=== PATIENT | female | born 1995 | race Caucasian/White ===

== ENCOUNTER 2019-01-18 10:00 | Outpatient (REF) | payer BC, SELFPAY ==
--- NOTE | 2019-01-18 08:45 | PAPFT_PTH ---
PATIENT: CARLINE ADAN LOC: [facility] U#:[id number] AGE/SX: 23/F ROOM: RE01/18/[address]: OLY Zarco : 1995 BED: DIS: 01/18/2019 SPEC #: [id number] RECD: 01/18/19 12:57 STATUS: ERICK REChano #: [id number] NITZA: 01/18/19 08:[address]: Patricia James DEPT: [facility] Cytology RECD BY: Sneha Diaz ENTERED: 01/18/19 12:57 SP TYPE: PAPFT OTHR DR: Caridad Sanders Tissues: 1 - CX/ENDOCX FOR PAP SMEARS Procedures: PAP THIN PREP/[facility] Screening Comments: [id number]
[2019-01-21 14:51] LABS: Chlamydia Result Negative; GC Result Negative
== END 2019-01-18 10:20 ==
LOC: LBN 10:00
PROVIDERS: PCP Family Medicine; Visit Provider Nurse Practitioner Family
DX: Z11.3 Encounter for screening for infections with a predominantly sexual mode of transmission (principal); Z12.4 Encounter for screening for malignant neoplasm of cervix; Z11.51 Encounter for screening for human papillomavirus (HPV)
CPT/HCPCS: 87491; 87591; 88142

== ENCOUNTER 2020-01-05 19:26 | Emergency (ER) | payer BC, SELFPAY ==
[2020-01-05 19:35] VITALS: BP 140/99; PULSE 107; RESP 20; TEMP 36.9; O2SAT 98
--- NOTE | 2020-01-05 19:54 | DI.RAD_ITS ---
EXAM: XR ANKLE LT COMPLETE CLINICAL HISTORY: pain and swelling after trauma TECHNIQUE: COMPARISON: No exams were available for comparison FINDINGS: Three views were obtained. There is a bimalleolar fracture. There is mild displacement of fractures of the distal fibula and medial malleolus. There may be slight widening of the tibiotalar joint med ially. No other fracture seen. IMPRESSION:
--- NOTE | 2020-01-05 20:03 | DI.VRAD_ITS ---
PROCEDURE INFORMATION: Exam: XR Left Ankle Exam date and time: 01/05/2020 19:53 Age: 24 years old Clinical indication: Injury or trauma; Fall; Initial encounter; Swelling (edema); Ankle; Left; Patient HX: Pain and swelling after trauma. ; Additional info: Injured roller blading. [place] a crack when falling. TECHNIQUE: Imaging protocol: XR Left ankle. Views: 3 or more views. COMPARISON: CR LEFT ANKLE COMPLETE 01/19/2016 20:44 FINDINGS: Bones/joints: Acute oblique fracture, distal fibula, extending to the level of the ankle mortise with mild distal lateral angulation. Acute fracture of the medial malleolus which is mildly comminuted without significant displacement. Very minimal lateral tibiotalar mild alignment however no cleo dislocation. A benign-appearing bone island in the distal tibia. Soft tissues: Lateral greater than medial ankle soft tissue swelling. IMPRESSION: 1. Acute oblique fracture, distal fibula, extending to the level of the ankle mortise with mild distal lateral angulation. 2. Acute fracture of the medial malleolus which is mildly comminuted without significant displacement. 3. Very minimal lateral tibiotalar mild alignment however no cleo dislocation. Dictated and Authenticated by: Karolina Cevallos MD. Ordering:GARRY Delgado MD
--- NOTE | 2020-01-05 20:10 | W.ED.GENAD ---
Discharge Plan Disposition Patient Disposition: HOME Condition: Good Discharge Details Chief Complaint: Orthopedic Clinical Impression: Ankle fracture, left Primary Care Provider: Caridad Sanders ED Provider: Andrea Lott Home Meds and New Rx's Prescriptions: Continued vitafusion daily multi PO RF: 0 Discharge Instructions Instructions: Ankle Fracture (ED) Additional Instructions: You have a notable fracture of your ankle for the fibula and tibia. You need to make sure that you are using your crutches at all times, keep the splint on for support. While this may heal without surgical mediation, there is a chance that it may require surgical management for your tendons. This will have to be determined on reevaluation by the building performance specialist. Please follow-up closely with them. We will place a referral for you and theyshould contact you shortly. Please take 1000 mg of Tylenol every 6 hours and 800 mg of ibuprofen every 6 hours for pain. If you notice any worsening pain, viselike sensation on your ankle calf or foot, change in color, numbness or tingling please immediately unwrap the splint, and loosen it. If there is no improvement with this please contact the ER immediately. If you notice any worsening of your symptoms, or any new symptoms such as vomiting, diarrhea, fever, chills, shortness of breath, chest pain, numbness, weakness, or fainting , please return immediately to the emergency department for reevaluation. Please follow up with your primary care provider as soon as possible for reassessment and reevaluation. As always, it was a pleasure participating in your medical care today. Referrals: Danny Jackson MD [ [facility]] - Asim Kenney MD [ [facility]] - Connor Saul MD [ [facility]] - Caridad Sanders [Primary Care Provider] - Medical Decision Making 24-year-old female no significant past medical history except for previous injury to the left ankle years ago presents today for evaluation of left ankle pain. Patient states that she was rollerskating earlier today, going backwards when she slipped and inverted her ankle. She heard a pop and felt significant pain. She came to the ER for further evaluation. She denies any numbness or tingling. She does have obvious pain with palpation or movement. She is unable to bear weight. She has no other complaints at this time. She has not taken any NSAIDs. No other modifying factors. Physical exam demonstrates notable swelling of the lateral aspect of the ankle, significant pain with palpation and movement. No other gross deformity though. X-ray reveals evidence of oblique fracture of the distal fibula, with a fracture also at the medial malleolus, mildly comminuted. Neurovascular exam is notably intact though. Patient was placed in a posterior splint secondary to the notable swelling in the ankle, concern for significant pain with pressure on the swollen areas if a sugar tong was used. Patient tolerated splint well. Gave new crutches. Patient will need close follow-up with orthopedics to evaluate for potential surgical management. Otherwise patient's foot is stable at this time. Discussed red flags which to return. Patient has refused any pain medications here at this time. No signs of compartment syndrome whatsoever. I have extensively reviewed the treatment plan and discharge instructions with the patient. I have addressed all patient concerns at this time. The patient was made aware of what symptoms to monitor for that would warrant a return to the emergency department. Discussed the plan with the patient, they demonstrate verbal understanding and agreement with our assessment and plan at this time. FINDINGS: Bones/joints: Acute oblique fracture, distal fibula, extending to the level of the ankle mortise with mild distal lateral angulation. Acute fracture of the medial malleolus which is mildly comminuted without significant displacement. Very minimal lateral tibiotalar mild alignment however no cleo dislocation. A benign-appearing bone island in the distal tibia. Soft tissues: Lateral greater than medial ankle soft tissue swelling. IMPRESSION: 1. Acute oblique fracture, distal fibula, extending to the level of the ankle mortise with mild distal lateral angulation. 2. Acute fracture of the medial malleolus which is mildly comminuted without significant displacement. 3. Very minimal lateral tibiotalar mild alignment however no cleo dislocation. Thank you for allowing us to participate in the care of your patient. Dictated and Authenticated by: Karolina Cevallos MD HPI General Date/Time Provider Initiated Documentation: 01/05/20 19:39. HPI Narrative: 24-year-old female no significant past medical history except for previous injury to the left ankle years ago presents today for evaluation of left ankle pain. Patient states that she was rollerskating earlier today, going backwards when she slipped and inverted her ankle. She heard a pop and felt significant pain. She came to the ER for further evaluation. She denies any numbness or tingling. She does have obvious pain with palpation or movement. She is unable to bear weight. She has no other complaints at this time. She has not taken any NSAIDs. No other modifying factors. Related Data Home Medications Medication Instructions Recorded Confirmed vitafusion daily multi PO 01/03/19 Allergies Allergy/AdvReac Type Severity Reaction Status Date / Time cat dander Allergy Intermediate Hives Verified 01/05/20 19:38 birch Allergy Swelling/Ed Verified 01/05/20 19:38 alma rosa General Stated Complaint: Orthopedic MELLISA: 3 Review of Systems All systems reviewed & are unremarkable except as noted in HPI and below PFSH Family History Father Depression Mother Depression Social History Smoking/Tobacco Use Status: Never Alcohol Intake: current Drug use: Occasionally Substance use type: marijuana current occupation: Teacher [employer] Do you feel safe at home: Yes Do you feel safe in your relationship?: Yes Female Reproductive History Menstrual control method: none History History 0 Para Hx # Term Pregnancies Multiple births Hx # Pregnancies Ectopic pregnancies AB induced Hx Number of Living Children AB spontaneous Exam Narrative Exam Narrative: 1.Const: Well-nourished, Well-developed, appearing stated age 2.Eyes: PERRL, no conjunctival injection, and symmetrical lids. 3.ENT: Atraumatic external nose and ears. Moist MM. Neck: Symmetric, trachea midline, No thyromegaly. 4.CVS: +S1/S2, No murmurs or gallops. Peripheral pulses 2+ and equal in all extremities. Brisk capillary refill in all extremities. 5.RESP: Unlabored respiratory effort. Clear to auscultation bilaterally. No wheezes rales or rhonchi 6.GI: Soft, Nontender/Nondistended, No hepatosplenomegaly. No guarding or rebound. 7.MSK: Normocephalic, No cyanosis or clubbing, patient's left ankle demonstrates notable swelling on the lateral aspect, notable pain on both the medial and lateral aspect. No pain in the base of the foot, or mid or proximal tib-fib or knee. Unable to manipulate the ankle secondary to pain and swelling. 8.Skin: Warm, Dry. No rashes or lesions. 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 Sensation grossly intact, no focal neurologic deficits. 10.Psych: (AAO) x3. Appropriate mood and affect Course Vital Signs Vital signs: Vital Signs Temperature 36.9 C 01/05/20 19:35 Pulse 107 H 01/05/20 19:35 Respiratory Rate 01/05/20 19:35 Blood Pressure 140/99 H 01/05/20 19:35 Pulse Oximetry 98 01/05/20 19:35 Temperature 36.9 C 01/05/20 19:35 Temperature Source Temporal Artery Scan 01/05/20 19:35 Pulse 107 H 01/05/20 19:35 Respiratory Rate 01/05/20 19:35 Respiratory Effort Non-Labored 01/05/20 19:38 Blood Pressure 140/99 H 01/05/20 19:35 Blood Pressure Position Sitting 01/05/20 19:35 Pulse Oximetry 98 01/05/20 19:35 Oxygen Delivery Method Room Air 01/05/20 19:35 Oxygen Flow Rate 0 01/05/20 19:35 Pain Level 8 01/05/20 19:38
[2020-01-05 20:43] VITALS: BP 140/99; PULSE 107; RESP 20; O2SAT 98
== END 2020-01-05 20:40 | disposition home or self-care (01) ==
PROVIDERS: Emergency Provider Student in an Organized Health Care Education/Training Program; PCP Family Medicine
DX: S82.432A Displaced oblique fracture of shaft of left fibula, initial encounter for closed fracture (principal); S82.55XA Nondisplaced fracture of medial malleolus of left tibia, initial encounter for closed fracture; X50.9XXA Other and unspecified overexertion or strenuous movements or postures, initial encounter; Y93.51 Activity, roller skating (inline) and skateboarding
CPT/HCPCS: 27760; 27780; 73610; E0114